=== PATIENT | male | born 1955 | race Caucasian/White ===

== ENCOUNTER 2017-02-12 19:33 | Emergency (ER) | payer BC ==
[~2017-02-12] VITALS: Ht 185.4 cm; Wt 111.9 kg
[2017-02-12 19:39] VITALS: BP 121/86
[2017-02-12] MEDS ORDERED: NEOSPORIN OINT 0.9 GM PKT (FLOOR STOCK) As Ordered ONE (20:26)
== END 2017-02-12 20:41 | disposition home or self-care (01) ==
LOC: M ED 19:33
DX: S01.01XA Laceration without foreign body of scalp, initial encounter (principal); W22.09XA Striking against other stationary object, initial encounter; Y92.410 Unspecified street and highway as the place of occurrence of the external cause; Y93.89 Activity, other specified; Y99.8 Other external cause status

== ENCOUNTER → 2018-02-11 | Outpatient (CLI) | payer BC | LOC: M PLARAD 12:56 | DX: M47.812 Spondylosis without myelopathy or radiculopathy, cervical region (principal); M50.221 Other cervical disc displacement at C4-C5 level; M50.222 Other cervical disc displacement at C5-C6 level; M54.12 Radiculopathy, cervical region | CPT/HCPCS: 72141 ==

== ENCOUNTER → 2019-03-27 | Outpatient (REF) | payer BC ==
[2019-03-27 18:00] LABS: FOLATE 9.8 NG/ML
== END ==
LOC: M LAB REF 16:52
PROVIDERS: ATTEND Internal Medicine
DX: K14.0 Glossitis (principal)

== ENCOUNTER → 2019-04-13 | Outpatient (CLI) | payer BC ==
--- NOTE | 2019-04-13 11:41 | REP ---
HIDA SCAN: Following the intravenous administration of 6.6 millicuries technetium 99m Mebrofenin, multiple images of the right upper quadrant are performed every 5 minutes for a period of 1 hour. Gallbladder is not visualized during this time. There is biliary to bowel transit noted at about 20 minutes post-injection. 3-hour delayed images are performed. There does appear to be mild activity in the gallbladder at that time. IMPRESSION: Delayed visualization of the gallbladder most consistent with chronic cholecystitis. Electronically Signed by Rafi Ortiz MD 04/13/2019 02:07 P
== END ==
LOC: M RAD 07:56
PROVIDERS: ATTEND Internal Medicine
DX: K80.20 Calculus of gallbladder without cholecystitis without obstruction (principal)
CPT/HCPCS: 78226; A9537

== ENCOUNTER 2019-05-24 09:17 | Day surgery (SDC) | payer BC ==
[~2019-05-24] VITALS: Ht 185.4 cm; Wt 104.2 kg
[~2019-05-24 09:17] MED LIST: NS 1,000 ML IV ONE
--- NOTE | 2019-05-24 11:33 | ROOR ---
Patient Name: Axel Khan Procedure Date: 05/24/2019 11:03 AM Date of : 1955 Age: 63 Room: [facility] Gender: Male Note Status: Finalized Procedure: Total Colonoscopy to Cecum + Cold Snare Polypectomy + Hemoclips Indications: Screening for colorectal malignant neoplasm, Last colonoscopy: 2008 Providers: Juliano Hayes MD Referring MD: CHELA GONSALVES JR, MD Requesting Provider: Medicines: Monitored Anesthesia Care Complications: No immediate complications. Procedure: Pre-Anesthesia Assessment: - The heart rate, respiratory rate, oxygen saturations, blood pressure, adequacy of pulmonary ventilation, and response to care were monitored throughout the procedure. The Colonoscope was introduced through the anus and advanced to the cecum, identified by appendiceal orifice and ileocecal valve. The colonoscopy was performed without difficulty. The patient tolerated the procedure well. The quality of the bowel preparation was excellent. Findings: The perianal and digital rectal examinations were normal. Non-bleeding internal hemorrhoids were found during retroflexion. The hemorrhoids were small and Grade I (internal hemorrhoids that do not prolapse). A small polyp was found at 20 cm proximal to the anus. The polyp was sessile. The polyp was removed with a cold snare. Resection and retrieval were complete. A small polyp was found at 50 cm proximal to the anus. The polyp was sessile. The polyp was removed with a cold snare. Resection and retrieval were complete. A small polyp was found in the cecum. The polyp was sessile. The polyp was removed with a cold snare. Resection and retrieval were complete. To prevent bleeding after the polypectomy, two hemostatic clips were successfully placed (MR conditional). There was no bleeding at the end of the procedure. Multiple small and large-mouthed diverticula were found in the recto-sigmoid colon, sigmoid colon and descending colon. The exam was otherwise without abnormality on direct and retroflexion views. Impression: - Non-bleeding internal hemorrhoids. - One small polyp at 20 cm proximal to the anus, removed with a cold snare. Resected and retrieved. - One small polyp at 50 cm proximal to the anus, removed with a cold snare. Resected and retrieved. - One small polyp in the cecum, removed with a cold snare. Resected and retrieved. Clips (MR conditional) were placed. - Diverticulosis in the recto-sigmoid colon, in the sigmoid colon and in the descending colon. - The examination was otherwise normal on direct and retroflexion views. - The exam was otherwise normal to the cecum. Recommendation: - Patient has a contact number available for emergencies. The signs and symptoms of potential delayed complications were discussed with the patient. Return to normal activities tomorrow. Written discharge instructions were provided to the patient. - High fiber diet. - Discharge patient to home. - Continue present medications. - Await pathology results. - Telephone GI clinic for pathology results in 1 week. - Return to referring physician. - The findings and recommendations were discussed with the patient's family. Juliano Hayes MD Juliano Hayes MD 05/24/2019 11:33:27 AM Electronically signed by Juliano Hayes MD Number of Addenda: 0 Note Initiated On: 05/24/2019 11:03 AM Estimated Blood Loss: Estimated blood loss: none.
[2019-05-24 12:01] VITALS: BP 111/64
== END 2019-05-24 12:03 | disposition home or self-care (01) ==
LOC: M OPP 09:17
PROVIDERS: ATTEND Internal Medicine Gastroenterology
DX: Z12.11 Encounter for screening for malignant neoplasm of colon (principal); K64.0 First degree hemorrhoids; K63.5 Polyp of colon; K57.30 Diverticulosis of large intestine without perforation or abscess without bleeding

== ENCOUNTER 2020-02-27 07:30 | Day surgery (SDC) | payer BC ==
[~2020-02-27] VITALS: Ht 185.4 cm; Wt 102.1 kg
[~2020-02-27 07:30] MED LIST changes: +ASPI81TA85 PO; +ATOR1TAB21 PO; +METO1TAB32 PO; -NS 1,000 ML IV ONE
[2020-02-27] MEDS ORDERED: ceFAZolin 1GM VIAL (J0690 PER 500MG) ONE (08:31)
[2020-02-27] MEDS ORDERED: ceFAZolin 1GM VIAL (J0690 PER 500MG) As Ordered ONE (08:31)
[2020-02-27] MEDS ORDERED: LIDOCAINE 2% 100MG/5ML SDV (FOR ANES.) As Ordered ONE (08:40)
[2020-02-27] MEDS ORDERED: propofoL 200 MG/20 ML VIAL As Ordered ONE (08:40)
[2020-02-27] MEDS ORDERED: ROCURONIUM BROMIDE 50 MG/5 ML VIAL As Ordered ONE (08:40)
[2020-02-27] MEDS ORDERED: MIDAZOLAM INJ 2MG/2ML VIAL (J2250 PER 1MG) As Ordered ONE (08:41)
[2020-02-27] MEDS ORDERED: fentaNYL 250 MCG/5 ML INJECTION (J3010) As Ordered ONE (08:41)
[2020-02-27] MEDS ORDERED: BUPIVACAINE HCL 0.25% 30ML VIAL As Ordered ONE (08:48)
[2020-02-27] MEDS ORDERED: BUPIVACAINE/EPIN 0.25% 30 ML VIAL As Ordered ONE (08:50)
[2020-02-27] MEDS ORDERED: ePHEDrine SULFATE 25 MG/5 ML(5MG/ML) SYRINGE As Ordered ONE (09:06)
[2020-02-27] MEDS ORDERED: PHENYLephrine HCL 500 MCG/5 ML (100MCG/ML) SYRINGE (J2370) As Ordered ONE (09:09)
[2020-02-27] MEDS ORDERED: dexameTHASONE 4 MG/ML 1ML VIAL (J1100 PER 1MG) As Ordered ONE (09:10)
[2020-02-27] MEDS ORDERED: ONDANSETRON 4MG/2ML VIAL As Ordered ONE (09:23)
[2020-02-27] MEDS ORDERED: METOCLOPRAMIDE INJ 10MG/2ML VIAL (J2765 PER 1) As Ordered ONE (09:23)
[2020-02-27] MEDS ORDERED: ACETAMINOPHEN 1000MG 100ML IV BTL (OFIRMEV) (J0131 PER 10MG) As Ordered ONE (09:23)
[2020-02-27] MEDS ORDERED: KETOROLAC 60MG 2ML VIAL As Ordered ONE (09:23)
== END 2020-02-27 11:50 | disposition home or self-care (01) ==
LOC: M SDC 07:30
PROVIDERS: ATTEND Surgery
DX: K80.10 Calculus of gallbladder with chronic cholecystitis without obstruction (principal); E78.00 Pure hypercholesterolemia, unspecified; Z85.46 Personal history of malignant neoplasm of prostate; I10 Essential (primary) hypertension; R07.9 Chest pain, unspecified; Z79.82 Long term (current) use of aspirin; Z79.899 Other long term (current) drug therapy
CPT/HCPCS: 47562; 88304; J0131; J0690; J1100; J1885; J2250; J2370; J2405; J2765; J3010